=== PATIENT | male | born 1985 | race Caucasian/White ===

== ENCOUNTER 2016-11-11 20:40 | Emergency (ER) ==
--- NOTE | 2016-11-11 20:54 | PROVIDER DOCUMENTATION ---
HPI-General Adult - General Stated Complaint: @2003 RT INDEX FINGER LACERATION Time Seen by Provider: 11/11/16 20:43 Source: patient Allergies/Adverse Reactions: Patient Allergies Allergy/AdvReac Type Severity Reaction Status Date / Time morphine Allergy Unknown Verified 11/11/16 22:37 Home Medications: Home Medication List Medication Instructions Recorded Confirmed Last Taken Type Cephalexin [Keflex] 500 mg PO BID #10 capsule 11/11/16 Unknown Rx - History of Present Illness -Gen Adult Nature of Presenting Problems: Pt. is 31 yom that presents with c/o injury to right index finger. Pt. reports it was crushed between some metal and reports his tetanus is up to date. Pt. denies any other injury. Location of Pain/Injury: reports: hand(s) (Right index finger). denies: head, face, mouth, neck, chest, upper extremity, abdomen, back, pelvis, genitalia, lower extremity, feet, upper body, lower body, generalized Pain Radiation: reports: no radiation Quality of Pain: reports: aching. denies: burning, cramping, dull, fullness, indigestion, pressure, sharp, stabbing, tearing, throbbing, tightness Severity: reports: mild. denies: moderate, severe Onset/Duration: reports: abrupt, just prior to arrival Timing: reports: still present. denies: improving, gone now, resolved prior to arrival, intermittent, constant, changing over time, getting worse Context/Activities at Onset: reports: moderate activity, recent trauma history. denies: recent emotional stress, recent physical stress, possible bad food, cold exposure, out of country travel Modifying Factors: improves with: nothing Associated Symptoms: reports: joint pain. denies: anxiety, arm pain, back/neck pain, chest pain, constipation, cough, diaphoresis, diarrhea, dizziness, EENT symptoms, fatigue, fever/chills, genitourinary problems, headaches, heartburn, loss of appetite, malaise, muscle aches, sinus congestion/drainage, nausea, rash , seizure, shortness of breath, sensory/motor loss, pain with inspiration, swelling/mass in abdomen, syncope, vomiting, weakness, trouble walking Similar Symptoms Previously?: No Recently seen or treated by another doctor?: No Review of Systems - Adult - REVIEW OF SYSTEMS - ADULT Constitutional: reports: see HPI. denies: chills, fatique, night sweats, weight loss Eyes: reports: see HPI. denies: discharge, blurred vision, double vision, eye pain Ears, Nose, Mouth & Throat: reports: see HPI. denies: ear pain, hearing loss, loose teeth, mouth/dental pain, throat pain, throat swelling Cardiovascular: reports: see HPI. denies: chest pain, orthopnea, palpitations, syncope Respiratory: reports: see HPI. denies: cough, dyspnea on exertion, pleurisy, shortness of breath, wheezing Gastrointestinal: reports: see HPI. denies: abdominal pain, hematemesis, diarrhea, nausea, vomiting Genitourinary: reports: see HPI. denies: dysuria, discharge, hematuria, hesitency, urgency Musculoskeletal: reports: see HPI, bone pain, joint pain (Right index finger). denies: muscle aches, neck pain Integumentary: reports: see HPI, other (laceration). denies: hives, itching, rash, skin sores/ulcer Neurological: reports: see HPI. denies: ataxia, headache/migraines, numbness, seizure, tremors Psychiatric: reports: see HPI. denies: anxiety, depression, emotional problems , insomnia, panic attacks, suicidal thoughts Past History - Adult - PAST MEDICAL HISTORY-ADULT Review of Records: reports: Old Records Reviewed, Nursing Assessment Review, Medications Reviewed, Social history reviewed & non-contributory. - IMMUNIZATION STATUS Childhood Immunizations: See Nurse Assessment Flu Vaccine: See Nurse Assessment - FAMILY HISTORY Family History: reviewed, not pertinent - SOCIAL HISTORY Smoking: cigarettes, greater than 1 pack/day Provider spent 3-5 mins advising pt. on dangers of tobacco.: Discussed the need to stop smoking. Physical Exam-General - PHYSICAL EXAM-ADULT Initial Vital Signs Reviewed: Yes - CONSTITUTIONAL General Appearance: alert, mild distress, thin. negative: obese, anxious, lethargic, slow to respond, obtunded, combative - EYES Eyes: PERRL/EOMI, pink conjunctivae. negative: conjuctival exudate, scleral icterus, subconjunctival hemorrhage - HEAD, EARS, NOSE, MOUTH & THROAT HENMT: normocephalic/atraumatic, moist mucous membranes. negative: angioedema, frontal tenderness, maxillary tenderness - NECK Neck: non-tender, full range of motion, supple, normal inspection. negative: lymphadenopathy, trachial deviation, thyromegaly - RESPIRATORY Respiratory: lungs clear, normal breath sounds. negative: crackles, rales, rhonchi, stridor, wheezing - CARDIOVASCULAR Cardiovascular: normal peripheral pulses, regular rate, rhythm, no edema, no JVD , no murmur. negative: extra beats, friction rub, irregularly irregular - CHEST (BREASTS) Chest/Breast: deferred - GASTROINTESTINAL (ABDOMEN) Abdominal Exam: normal bowel sounds, non tender, soft. negative: distended, guarding, rigid, rebound, tenderness, hernia, mass - GENITOURINARY Male Genitalia: deferred Rectal Exam: deferred Hemoccult Exam: deferred - LYMPHATIC Lymphatic: no adenopathy. negative: axilla node tender, cervical node tenderness - MUSCULOSKELETAL Back Exam: normal inspection, no CVA tenderness, no vertebral tenderness. negative: ecchymosis, swelling, vertebral tenderness Extremity: deformity (Right index finger), tenderness (Right index finger). negative: erythema, inflammation, swelling Peripheral Pulses: radial (R): 2+, radial (L): 2+ - SKIN Integumentary: normal color, normal turgor, warm/dry, laceration(s) (Right index finger). negative: cyanosis, diaphoresis, ecchymosis, erythema, jaundice , mottled, pallor, petechiae, purpura, rash, swelling, tenderness - NEUROLOGIC Neurologic: grossly normal, no motor/sensory deficits. negative: aphasia, facial droop, focal weakness, motor weakness, sensory deficit - PSYCHIATRIC Psych/Mental Status: normal mood/affect, normal thought content, normal thought process, oriented x 3. negative: anxious, paranoid, tearful Progress - PLAN OF CARE/RESULTS Progress/Plan/Lab Results: Discussed results and plan of care with patient. Patient agrees with plan and verbalizes understanding. Vital Signs Temp Pulse Resp BP Pulse Ox 11/11/16 21:13 98.2 F 76 16 133/81 100 morphine Allergy (Verified 11/11/16 22:37) Unknown No Home Medications 11/11/16 Orders Category Date Time Status Wound Care DIRECTED Care 11/11/16 21:12 Active FINGER(S)-RIGHT [RAD] Stat Exams 11/11/16 20:46 Taken Lidocaine 1% [Xylocaine 1%] Med 11/11/16 22:30 Discontinued 20 ml .ROUTE .STK-MED ONE Pt. refused pain medications. - XRAY 1 XRAY: Right XRAY Study: other (index finger - Distal phalanx Fx (Deniz)) Procedures - LACERATION/WOUND REPAIR/FB Right Finger Wound Location: Other: Right index finger Wound Length: 1 cm Wound's Depth, Shape: superficial Wound Explored/Foreign Body: contaminated moderately Irrigated with Saline?: Yes Prepped with: Betadine Anesthetic: 1%, Lidocaine/Xylocaine Volume of Anesthetic (ml's): 6 Wound Repaired with: Sutures Suture Size/Type: 4.0, Nylon Number of Sutures: 4 Layer Closure?: No Sterile Dressing Applied?: Yes Splint Applied?: Yes Sling Applied?: No Post Procedure Neurovascular Exam: Intact - SPLINTING Right 2nd Digit Pre-Procedure Neurovascular Exam: Intact Pre-Fabricated Splint: Aluminum Foam Applied By: technical manager Assisted By: Mid-level Post Procedure Neurovascular Exam: Intact Departure - Departure Time of Disposition Order: 22:55 DIAGNOSIS: Crush fracture, Laceration Disposition: HOME 01 Certified Medical Emergency: Emergent Condition: Stable Additional Instructions: Follow up with primary care physician Take medications as directed Return to ED in 7 to 10 days for suture removal Return to ED for any concerns or worsening of symptoms ED Follow Up Instructions: You have been treated by a care provider in the Emergency Department. These instructions are being provided to you so you can have an understanding of how to care for yourself upon discharge. Upon discharge from the Emergency Department, you are responsible for making arrangements for follow-up care by a physician of your choice. Take all prescribed medications as directed. Return to the Emergency Department immediately for any new or worsening symptoms. You may call the Physician Referral phone number at [phone] to obtain a list of Physicians who are taking new patients. Prescriptions: Cephalexin [Keflex] 500 mg PO BID #10 capsule Attestation - Physician/ SPENCER Attestation Patient care was provided by Advanced Practice Provider:: Yes Advanced Practice Provider:: Krystal Guaman Advanced Practice Provider documentation review:: The Mid-level provider documentation, treatment plan and medical decision making was reviewed by the physician who agrees with all treatment and medical decision making by the [facility].
[2016-11-11] MEDS ORDERED: XYLOCAINE 1% ONE (22:30)
[2016-11-11] MEDS ORDERED: KEFLEX PO ONE (22:54)
[2016-11-11] MEDS ORDERED: NEOSPORIN OINTMENT TUBE ONE (23:21)
--- NOTE | 2016-11-11 23:27 | Diag Imaging Result Document ---
PROCEDURE NAME: FINGER(S)-RIGHT - 11/11/2016 PLAIN RADIOGRAPH OF THE RIGHT INDEX FINGER 3 VIEWS: COMPARISON: None available. FINDINGS: There is a fracture involving the distal phalanx of the index finger with no significant displacement. The fracture extends to the IP joint. No other definite fracture or dislocation is identified. There is soft tissue edema around the tip of the finger. IMPRESSION: Fracture of the distal phalanx of the index finger as described.
[2016-11-11 23:35] VITALS: BP 126/77
== END 2016-11-11 23:36 | disposition home or self-care (01) ==
LOC: ED 20:40
DX: S67.190A Crushing injury of right index finger, initial encounter (principal); S62.630A Displaced fracture of distal phalanx of right index finger, initial encounter for closed fracture; W23.0XXA Caught, crushed, jammed, or pinched between moving objects, initial encounter; M25.541 Pain in joints of right hand; F17.210 Nicotine dependence, cigarettes, uncomplicated; Z71.6 Tobacco abuse counseling
CPT/HCPCS: 73140